=== PATIENT | female | born 1950 | race Hispanic/Latino ===

== ENCOUNTER 2018-05-26 06:52 | Day surgery (SDC) | payer OTHER ==
[~2018-05-26] VITALS: Ht 167.6 cm; Wt 74.7 kg
[2018-05-26 07:29] LABS: BASOPHILS % (AUTO) 2.4 % (0.0-5.0); EOSINOPHILS % (AUTO) 3.5 % (0.0-8.0); HEMATOCRIT 37.3 % (36-48); LYMPHOCYTES % (AUTO) 25.5 % (21.0-51.0); MEAN CORPUSCULAR HEMOGLOBIN 27.3 pg (27.0-33.0); MEAN CORPUSCULAR VOLUME 85.3 fL (79-99); MONOCYTES % (AUTO) 5.3 % (3.0-13.0); NEUTROPHILS % (AUTO) 63.3 % (40.0-77.0); NUCLEATED RED BLOOD CELLS 0.1 % (0.0-0.19); RED BLOOD CELL COUNT(AUTO) 4.37 MIL/uL (4.00-5.50); RED CELL DISTRIBUTION WIDTH 13.1 % (11.0-15.5); WHITE BLOOD COUNT (AUTO) 6.6 K/uL (4.8-10.8)
[2018-05-26 07:34] LABS: CREATININE 0.8 mg/dL (0.5-1.5); POTASSIUM 4.1 mmol/L (3.5-5.1)
[2018-05-26 07:41] VITALS: BP 119/55
[2018-05-26 07:43] LABS: PLATELET COUNT (AUTO) 894 K/uL (130-400)
[2018-05-26] MEDS ORDERED: PROPOFOL 10 MG/ML 20ML VIAL IV ONE (07:57)
[2018-05-26] MEDS ORDERED: LIDOCAINE HCL 2% 20ML ONE (07:58)
[2018-05-26] MEDS ORDERED: PHENYLEPHRINE HCL 10 MG/ML 1ML VIAL IV ONE (07:59)
[2018-05-26] MEDS ORDERED: SODIUM CHLORIDE 0.9% 10 ML VIAL ONE ×2 (07:59)
[2018-05-26] MEDS ORDERED: SODIUM CHLORIDE 0.9% 1000ML 1,000 ML IV ONE (08:23)
[2018-05-26 08:26] VITALS: BP 104/31
[2018-05-26 08:27] LABS: PLATELET MORPHOLOGY COMMENT INCREASED
[2018-05-26] MEDS ORDERED: ASPI-555 PO (08:28)
[2018-05-26] MEDS ORDERED: ATOR20TA65 PO (08:28)
[2018-05-26] MEDS ORDERED: HYDR12.54 PO (08:28)
[2018-05-26] MEDS ORDERED: CITA10TA7 PO (08:28)
[2018-05-26] MEDS ORDERED: MONT10TA24 PO (08:28)
[2018-05-26] MEDS ORDERED: FLUT16H NS (08:28)
[2018-05-26] MEDS ORDERED: CETI10TA57 PO (08:28)
[2018-05-26] MEDS ORDERED: METF-444 PO (08:28)
[2018-05-26 08:30] VITALS: BP 105/49
[2018-05-26 08:35] VITALS: BP 107/56
[2018-05-26 08:40] VITALS: BP 108/62
== END 2018-05-26 09:20 | disposition home or self-care (01) ==
LOC: DAH 06:52 → ENDO 06:52
PROVIDERS: ATTEND Surgery
DX: Z12.11 Encounter for screening for malignant neoplasm of colon (principal); E11.9 Type 2 diabetes mellitus without complications; I10 Essential (primary) hypertension; E78.00 Pure hypercholesterolemia, unspecified; F32.9 Major depressive disorder, single episode, unspecified; Z98.890 Other specified postprocedural states; Z79.84 Long term (current) use of oral hypoglycemic drugs; Z79.899 Other long term (current) drug therapy; E78.5 Hyperlipidemia, unspecified
CPT/HCPCS: 36415; 80048; 82948 ×2; 85025; A4606; G0121; J2370; J2704; J3490; J7030; 45378

== ENCOUNTER → 2018-06-16 | Outpatient (CLI) | payer OTHER ==
[~2018-06-16] MED LIST: ASPI-555 PO; ATOR20TA65 PO; CETI10TA57 PO; CITA10TA7 PO; FLUT16H NS; HYDR12.54 PO; METF-444 PO; MONT10TA24 PO
== END | disposition home or self-care (01) ==
LOC: OIH 13:41
PROVIDERS: ATTEND Internal Medicine
DX: I10 Essential (primary) hypertension (principal)
CPT/HCPCS: 71046

== ENCOUNTER → 2018-06-26 | Outpatient (CLI) | payer OTHER | END | disposition home or self-care (01) | LOC: OIH 12:55 | PROVIDERS: ATTEND Internal Medicine | DX: M13.812 Other specified arthritis, left shoulder (principal) | CPT/HCPCS: 73030 ==

== ENCOUNTER → 2019-06-15 | Outpatient (CLI) | payer OTHER | END | disposition home or self-care (01) | LOC: OIH 13:47 | PROVIDERS: ATTEND Internal Medicine | DX: I10 Essential (primary) hypertension (principal); M17.12 Unilateral primary osteoarthritis, left knee | CPT/HCPCS: 71046; 73562 ==

== ENCOUNTER → 2020-01-24 | Outpatient (CLI) | payer OTHER ==
[~2020-01-24] MED LIST changes: -ASPI-555 PO; +ASPI-556 PO; -MONT10TA24 PO; +MONT10TA26 PO
== END | disposition home or self-care (01) ==
LOC: OIH 13:10
PROVIDERS: ATTEND Internal Medicine
DX: M47.814 Spondylosis without myelopathy or radiculopathy, thoracic region (principal); J84.9 Interstitial pulmonary disease, unspecified
CPT/HCPCS: 71046

== ENCOUNTER → 2021-07-17 | Outpatient (CLI) | payer OTHER ==
[~2021-07-17] MED LIST changes: -CITA10TA7 PO; +CITA10TA89 PO; +MONT-39 PO; -MONT10TA26 PO
== END | disposition home or self-care (01) ==
LOC: RAH 13:34
PROVIDERS: ATTEND Internal Medicine
DX: S80.00XA Contusion of unspecified knee, initial encounter (principal); M76.52 Patellar tendinitis, left knee; M76.51 Patellar tendinitis, right knee; M25.561 Pain in right knee; X58.XXXA Exposure to other specified factors, initial encounter; Y93.89 Activity, other specified; Y92.89 Other specified places as the place of occurrence of the external cause; Y99.8 Other external cause status

== ENCOUNTER → 2021-10-26 | Outpatient (CLI) | payer OTHER | END | disposition home or self-care (01) | LOC: RAH 10:43 | PROVIDERS: ATTEND Internal Medicine | DX: R05.9 Cough, unspecified (principal) | CPT/HCPCS: 71046 ==

== ENCOUNTER → 2023-10-05 | Outpatient (CLI) | payer OTHER | END | disposition home or self-care (01) | LOC: OIH 10:09 | PROVIDERS: ATTEND Internal Medicine | DX: Z13.6 Encounter for screening for cardiovascular disorders (principal) | CPT/HCPCS: 75571 ==